=== PATIENT | female | born 1990 | race Hispanic/Latino ===

== ENCOUNTER 2017-08-07 | Emergency (ER) | payer OTHER ==
[2017-08-07 00:07] VITALS: BP 112/65; PULSE 77; RESP 18; TEMP 97.2; O2SAT 100
[2017-08-07] MEDS ORDERED: Lactated Ringer's 1,000 ML IV SCH (00:30)
--- NOTE | 2017-08-07 00:43 | ED PDOC ---
HPI: Psych/Substance Abuse Time Seen by Provider: 08/07/17 00:15 Chief Complaint (Nursing): Alcohol Ingestion Chief Complaint (Provider): ETOH, vomoting ED Caveat: Intoxicated History Per: Patient History/Exam Limitations: no limitations Onset/Duration Of Symptoms: Unknown Current Symptoms Are (Timing): Still Present Additional Complaint(s): 27 y/o female brought in for evaluation of vomiting in the setting of ETOH. She denies any other complaints. Past Medical History Vital Signs: Last Vital Signs Temp 97.2 F L 08/07/17 00:04 Pulse 77 08/07/17 00:04 Resp 18 08/07/17 00:04 BP 112/65 08/07/17 00:04 Pulse Ox 100 08/07/17 00:04 - Medical History PMH: No Chronic Diseases - Surgical History Surgical History: No Surg Hx - Family History Family History: States: Unknown Family Hx - Allergies Allergies/Adverse Reactions: Allergies Allergy/AdvReac Type Severity Reaction Status Date / Time No Known Allergies Allergy Verified 08/07/17 00:03 Review of Systems Review Of Systems: ROS cannot be obtained secondary to pt's inabilty to answer questions. Physical Exam - Physical Exam Appears: Positive for: No Acute Distress. Negative for: Well (intoxicated) Head Exam: Positive for: ATRAUMATIC Skin: Positive for: Normal Color Eye Exam: Positive for: Normal appearance, EOMI, PERRL Cardiovascular/Chest: Positive for: Regular Rate, Rhythm Respiratory: Positive for: Normal Breath Sounds Extremity: Positive for: Normal ROM Neurologic/Psych: Positive for: Alert, Other (intoxicated) - Laboratory Results Result Diagrams: 08/07/17 01:04 08/07/17 01:04 - ECG O2 Sat by Pulse Oximetry: 100 Medical Decision Making Medical Decision Making: Impression: Vomiting in the setting of ETOH Plan: -Labs - IVF - Zofran 06:20: on reevaluation the patient's speech is clear and she is ambulating steadily. Patient is clinically sober and will be discharged home. Scribe Attestation Documented by Lacy Daly acting as a scribe for Marquise Kirk MD. Provider Attestation All medical record entries made by the Scribe were at my direction and personally dictated by me. I have reviewed the chart and agree that the record accurately reflects my personal performance of the history, physical exam, medical decision making, and the department course for this patient. I have also personally directed, reviewed, and agree with the discharge instructions and disposition. Disposition - Clinical Impression Clinical Impression: Alcohol abuse with intoxication - Disposition Disposition: Routine/Home Disposition Time: 07:00 Condition: STABLE Instructions: Alcohol Abuse and Alcoholism (DC) Forms: [facility] (Georgian)
[2017-08-07 01:08] LABS: BASO % 0.5 % (0.0-2.0); EOS # 0.1 K/uL (0.0-0.7); EOS % 1.2 % (0.0-4.0); HEMOGLOBIN 12.3 g/dL (12.0-16.0); LYMPH # 3.1 K/uL (1.0-4.3); MEAN CELL VOLUME 90.1 fl (81.0-99.0); MEAN CORPUSCULAR HEMOGLOBIN 29.6 pg (27.0-31.0); MEAN CORPUSCULAR HGB CONC 32.9 g/dL (33.0-37.0); MEAN PLATELET VOLUME 9.1 fl (7.2-11.7); MONO # 0.4 K/uL (0.0-0.8); NEUT # 4.2 K/uL (1.8-7.0); NEUT % 53.3 % (50.0-75.0); NRBC % 0.1 % (0.0-0.0); RBC 4.13 Mil/uL (3.80-5.20); RED CELL DISTRIBUTION WIDTH 13.4 % (11.5-14.5); WHITE BLOOD COUNT 7.8 K/uL (4.8-10.8)
[2017-08-07 01:33] LABS: BLOOD UREA NITROGEN 8 mg/dl (7-17); CALCIUM 8.6 mg/dL (8.4-10.2); GFR AFRICAN-AMERICAN > 60; GFR NON-AFRICAN AMERICAN > 60
== END 2017-08-07 06:30 | disposition home or self-care (01) ==
LOC: H.ER
DX: F10.129 Alcohol abuse with intoxication, unspecified (principal); R11.10 Vomiting, unspecified
CPT/HCPCS: 80048; 80320; 82948; 85025; 96374; 99283; J2405; J7120